=== PATIENT | female | born 1965 | race Two or more races ===

== ENCOUNTER 2017-01-28 16:27 | Emergency (ER) | payer MEDICAID, OTHER, SELFPAY ==
[~2017-01-28] VITALS: Ht 160 cm; Wt 68.0 kg
[2017-01-28 16:35] VITALS: BP 137/81
[2017-01-28] MEDS ORDERED: LIDOCAINE 1%, 20ML ONE (17:09)
[2017-01-28] MEDS ORDERED: METF500T4 PO (17:18)
[2017-01-28] MEDS ORDERED: LIDOCAINE 1%, 20ML INFIL ONE (17:30)
== END 2017-01-28 18:13 | disposition home or self-care (01) ==
LOC: ED 18:00
DX: L03.031 Cellulitis of right toe (principal); I10 Essential (primary) hypertension; E11.65 Type 2 diabetes mellitus with hyperglycemia
CPT/HCPCS: 64450; 82962; 99284

== ENCOUNTER 2017-09-08 21:18 | Emergency (ER) | payer MEDICAID ==
[~2017-09-08] VITALS: Ht 162.6 cm; Wt 74.0 kg
[~2017-09-08 21:18] MED LIST: METF500T5 PO
[2017-09-08 22:09] VITALS: BP 139/76
== END 2017-09-08 22:38 | disposition home or self-care (01) ==
LOC: ED 22:32
DX: S92.534A Nondisplaced fracture of distal phalanx of right lesser toe(s), initial encounter for closed fracture (principal); I10 Essential (primary) hypertension; E11.9 Type 2 diabetes mellitus without complications; W22.03XA Walked into furniture, initial encounter; Y93.89 Activity, other specified; Y99.8 Other external cause status; Y92.009 Unspecified place in unspecified non-institutional (private) residence as the place of occurrence of the external cause
CPT/HCPCS: 99284